=== PATIENT | male | born 1985 | race African-American/Black ===

== ENCOUNTER 2018-06-17 22:47 | Emergency (ER) | payer SELFPAY ==
[~2018-06-17] VITALS: Ht 177.8 cm; Wt 90.7 kg
[~2018-06-17 22:47] MED LIST: AMLODIPINE BESY10 MG ORAL; HYDRALAZINE HC100 MG ORAL; HYZAAR 100-251 EACH ORAL; NORVASC10 MG ORAL
--- NOTE | 2018-06-17 22:47 | NUR ---
ED Nurse Note: Patient walked into ED c/o laceration on right middle finger, patient reports he "cut the tip off" has a hx of high BP, but states he cannot afford meds, tri blood pressure of 212/126
[2018-06-17 22:55] VITALS: BP 215/139
[2018-06-17 22:56] VITALS: BP 180/71
--- NOTE | 2018-06-17 23:20 | NUR ---
ED Nurse Note: Received verbal orders from Dr. Parry for surgical and Norvasc 10mg. Patients blood pressure was 221/134
[2018-06-17] MEDS ORDERED: Surgicel 4in x 8in TOPIC ONE (23:30)
[2018-06-17] MEDS ORDERED: Tetanus/Diptheria/Pertussis Vaccine 0.5ml Syr IM ONE (23:45)
[2018-06-18] MEDS ORDERED: Bacitracin Oint UD TOPIC ONE ×4 (00:16→00:30)
[2018-06-18 00:37] VITALS: BP 199/125
[2018-06-18] MEDS ORDERED: Surgicel 4in x 8in TOPIC ONE (01:00)
[2018-06-18] MEDS ORDERED: NORCO 5-325 TA1 EACH ORAL (01:28)
[2018-06-18] MEDS ORDERED: CEPHALEXIN500 MG ORAL (01:28)
[2018-06-18] MEDS ORDERED: NORVASC10 MG ORAL (01:41)
[2018-06-18 02:55] VITALS: BP 189/115
--- NOTE | 2018-06-18 02:57 | Emergency Room Report ---
History of Present Illness General Chief Complaint: Laceration Source: Patient Present Illness HPI Patient presented for finger injury. Patient reportedly cut his finger on a knife. He reports having increased pain to the area. He reports having prior history of poorly controlled blood pressure. He denies any numbness or tingling. He states tetanus is not up-to-date. He states he has not been taking his blood pressure medications. Allergies: Coded Allergies: No Known Allergies (Unverified , 10/25/14) Patient History Past Medical History: see triage record Reviewed Nursing Documentation: PMH: Agreed; PSxH: Agreed Nursing Documentation-PM Past Medical History: No History, Except For Hx Cardiac Problems: Yes Hx Hypertension: Yes Hx Cancer: No Hx Gastrointestinal Problems: No Hx Neurological Problems: No Review of Systems All Other Systems: negative except mentioned in HPI Physical Exam Vital Signs Date Time Temp Pulse Resp B/P (MAP) Pulse Ox O2 Delivery O2 Flow Rate FiO2 06/17/18 22:49 98.2 104 18 212/126 06/17/18 22:55 99 General Appearance: well appearing, no apparent distress, alert, GCS 15 Head: normocephalic, atraumatic ENT: hearing grossly normal, normal voice Neck: full range of motion, supple Respiratory: no respiratory distress, speaking full sentences Musculoskeletal: no calf tenderness, other - finger tip avulsion with some bleeding to area Neurologic: normal gait Psychiatric: mood/affect normal Skin: no rash Medical Decision Making Diagnostic Impression: Primary Impression: Accelerated hypertension Additional Impression: Avulsion of skin of finger ER Course Patient presented for laceration. Differential diagnosis include was not limited to fracture, dislocation, foreign body, arterial injury among others.Patient was noted to have a deep avulsion to the soft tissue of his finger. There is no appear to be any bony involvement. Patient was noted to have some small arteriolar bleeding. Patient was anesthetized with a digital block. Electrocautery was performed however there is some persistent bleeding. Surgicel was subsequently applied and a pressure dressing was placed. This seemed to control the bleeding. Patient was advised to recheck in 2 days. He was started on oral antibiotics and given prescription for pain medications. He was noted to be markedly hypertensive and was given medications to control blood pressure. Patient was advised to return if he had any worsening bleeding fever or other concerns. He was advised that he would need follow-up with a hand specialist. Last Vital Signs Date Time Temp Pulse Resp B/P (MAP) Pulse Ox O2 Delivery O2 Flow Rate FiO2 06/18/18 01:09 204/122 06/18/18 00:37 98.2 87 18 99 Status: improved Disposition: HOME, SELF-CARE Condition: Stable Scripts Amlodipine Besylate (Norvasc) 10 Mg Tab 10 MG ORAL DAILY, #30 TAB 0 Refills Prov: Emery Parry MD 06/18/18 Cephalexin* (KEFLEX*) 500 Mg Capsule 500 MG ORAL EVERY 6 HOURS, #28 CAP Prov: Emery Parry MD 06/18/18 Hydrocodone Bit/Acetaminophen 5-325* (NORCO 5-325*) 1 Each Tablet 1 TAB ORAL Q6H PRN for For Pain, #10 TAB 0 Refills Prov: Emery Parry MD 06/18/18 Patient Instructions: Nonsutured Laceration Care Emery Parry MD Jun 18, 2018 02:57
[2018-06-18 02:58] VITALS: BP 189/115
--- NOTE | 2018-06-18 03:27 | NUR ---
ER DISCHARGE NOTE: Patient is cleared to be discharged per ERMD, pt is aox4, on room air, with stable vital signs. pt was given dc and prescription instructions, pt was able to verbalize understanding, pt id band removed without complications. pt is able to ambulate with steady gait. pt took all belongings.
[2018-06-18] MEDS ORDERED: Cephalexin 500mg cap ORAL ONE (03:30)
== END 2018-06-18 03:34 | disposition home or self-care (01) ==
LOC: EMR 23:09
DX: I10 Essential (primary) hypertension (principal); S61.212A Laceration without foreign body of right middle finger without damage to nail, initial encounter; W26.0XXA Contact with knife, initial encounter; Y92.9 Unspecified place or not applicable; Z23 Encounter for immunization
CPT/HCPCS: 90471; 90715; 99282